=== PATIENT | female | born 1950 | race African-American/Black ===

== ENCOUNTER 2022-01-24 09:45 | Day surgery (SDC) | payer OTHER ==
[2022-01-22 15:22] VITALS: BMI 21.9
[2022-01-24 11:50] VITALS: PULSE 84; TEMP 97
[2022-01-24 12:23] VITALS: BP 118/62
== END 2022-01-24 12:29 | disposition home or self-care (01) ==
LOC: FASU-ENDO 09:45
PROVIDERS: ATTEND Internal Medicine Gastroenterology
PROC: 0DB68ZX Excision of Stomach, Via Natural or Artificial Opening Endoscopic, Diagnostic (ICD-10-PCS; 2022-01-24)
PROC: 0DB48ZX Excision of Esophagogastric Junction, Via Natural or Artificial Opening Endoscopic, Diagnostic (ICD-10-PCS; principal; 2022-01-24 11:18)
DX: K29.50 Unspecified chronic gastritis without bleeding (principal); K20.90 Esophagitis, unspecified without bleeding; R10.13 Epigastric pain
CPT/HCPCS: 88305-TC; 88342-TC

== ENCOUNTER 2022-01-24 12:25 | Emergency (ER) | payer OTHER ==
[2022-01-24 12:48] VITALS: BP 97/53; PULSE 84; TEMP 98.3; BMI 18.6
[2022-01-24] MEDS ORDERED: DIPHTH,PERTUSS(ACELL),TET 0.5 ML DISP.SYRIN IM ONE ×2 (13:07→13:18)
== END 2022-01-24 13:26 | disposition home or self-care (01) ==
LOC: FER 12:25
PROC: 3E0234Z Introduction of Serum, Toxoid and Vaccine into Muscle, Percutaneous Approach (ICD-10-PCS; principal; 2022-01-24)
DX: S80.211A Abrasion, right knee, initial encounter (principal)
CPT/HCPCS: 90715; 99283-25; G0008